=== PATIENT | female | born 1995 | race African-American/Black ===

== ENCOUNTER 2023-10-16 21:23 | Emergency (ER) | payer MEDICAID ==
[~2023-10-16] VITALS: Ht 149.9 cm; Wt 40.0 kg
[2023-10-16 21:25] VITALS: BP 125/91; PULSE 65; RESP 20; TEMP 98.4; O2SAT 99
[2023-10-16] MEDS ORDERED: BENZ200C52 MT (23:43)
[2023-10-16] MEDS ORDERED: ACET325T52 MT (23:43)
== END 2023-10-17 01:11 | disposition home or self-care (01) ==
LOC: ER 21:23
DX: J06.9 Acute upper respiratory infection, unspecified (principal); J45.909 Unspecified asthma, uncomplicated; K21.9 Gastro-esophageal reflux disease without esophagitis
CPT/HCPCS: 71045; 99283